=== PATIENT | male | born 1995 | race African-American/Black ===

== ENCOUNTER 2017-02-27 22:04 | Emergency (ER) | payer OTHER ==
[2017-02-27 22:15] LABS: URINE SOURCE CLEAN CATCH
[2017-02-27 22:23] LABS: URINE APPEARANCE CLOUDY; URINE BILIRUBIN NEG (NEG); URINE BLOOD TRACE (NEG); URINE COLOR YELLOW; URINE GLUCOSE NEG (NEG); URINE KETONE TRACE (NEG); URINE LEUKOCYTE ESTERASE 3+ (NEG); URINE NITRATE NEG (NEG); URINE PROTEIN TRACE (NEG); URINE SPECIFIC GRAVITY 1.026 (1.003-1.035)
[2017-02-27 22:26] LABS: CULTURE INDICATED? YES; URINE BACTERIA AUWI NEG (NEGATIVE); URINE SQUAMOUS EPITHELIAL CELL NONE SEEN /[HPF]; UWBCS1 AUWI INNUM (0-5)
[2017-03-01 16:48] LABS: CHLAMYDIA TRACH Not Detected (Not Detected); N GONOR Detected (Not Detected)
== END 2017-02-27 22:25 | disposition home or self-care (01) ==
LOC: CED 22:04
PROVIDERS: Emergency Medicine
DX: A56.01 Chlamydial cystitis and urethritis (principal); F31.9 Bipolar disorder, unspecified; F91.3 Oppositional defiant disorder
CPT/HCPCS: 81003; 87086; 87491; 87591; 96372; 99283; J0696